=== PATIENT | male | born 2000 ===

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

== ENCOUNTER 2019-03-22 03:25 | Emergency (ER) | payer OTHER ==
[~2019-03-22 03:25] MED LIST changes: +INDO-23 PO
[2019-03-22] MEDS ORDERED: ALBUTEROL 2.5 MG/3 ML NEB ONE (03:26)
--- NOTE | 2019-03-22 03:32 | ER Report ---
History and Physical Time Seen By MD: 03:28 Hx. of Stated Complaint: ASTHMA EXACERBATION HPI/ROS CHIEF COMPLAINT: asthma exacerbation HISTORY OF PRESENT ILLNESS: This is a 18 year old male. Tonight with shortness of breath and wheezing. Has history of asthma, inhaler use at home, but not helping now. Some tightness, but no chest pain. REVIEW OF SYSTEMS: Cardiovascular: No chest pain, no palpitations. Gastrointestinal: No vomiting, no abdominal pain. Neuro: no headache, no weakness. Genitourinary: No problems with urination. Musculoskeletal: No musculoskeletal pain. Allergies: Coded Allergies: No Known Drug Allergies (Unverified , 03/22/19) Home Meds Active Scripts Prednisone (PREDNISONE) 20 Mg Tablet, 60 MG PO QDAY for 4 Days, #12 TAB 0 Refills Prov:ADAM PRINCE MD 03/22/19 Albuterol Sulfate 90 Mcg/Act (PROAIR HFA 90 MCG/ACT) 8.5 Gm Hfa.aer.ad, 2 PUFF IH Q4-6H PRN for asthma symptoms, #1 INHALER 2 Refills Prov:ILYA SWIFT DO 12/16/16 Discontinued Scripts Indomethacin (INDOMETHACIN) 50 Mg Capsule, 50 MG PO TID, #21 CAPSULE Prov:ARLENE MIMS 08/28/18 Hydrocodone Bit/Acetaminophen (HYDROCODON-ACETAMINOPHEN 5-325) 1 Each Tablet, 1 EACH PO Q4-6H PRN for PAIN, #12 TAB Prov:ARLENE MIMS 08/28/18 Reviewed Nurses Notes: Yes Hx Substance Use Disorder: No Hx Alcohol Use: No Constitutional Vital Sign - Last 24 Hours 03/22/19 03/22/19 03/22/19 03/22/19 03:25 03:26 03:27 03:27 Temp 97.7 Pulse 114 124 110 Resp 42 44 26 Pulse Ox 92 85 92 O2 Delivery Room Air Nasal Cannula O2 Flow Rate 2.0 03/22/19 03/22/19 03/22/19 03/22/19 03:30 03:30 03:35 03:35 Pulse 95 95 101 Resp 25 24 19 B/P (MAP) 134/87 (103) Pulse Ox 99 95 O2 Flow Rate 3.0 03/22/19 03/22/19 03/22/19 03/22/19 03:40 03:42 03:50 03:55 Pulse 86 93 83 75 Resp 12 24 11 21 Pulse Ox 100 92 92 03/22/19 03/22/19 03/22/19 03/22/19 04:00 04:05 04:20 04:30 Pulse 75 87 Resp 11 21 B/P (MAP) 128/92 (104) 129/78 (95) Pulse Ox 95 91 03/22/19 04:35 Pulse 81 Resp 16 Pulse Ox 91 Physical Exam General Appearance: Alert, having some distress due to shortness of breath, but no airway compromise. Eyes: Pupils equal and round, no injection. ENT: Normal oral mucosa. Moist mucous membranes. Normal posterior oropharynx. Neck: Neck is supple and non tender. Respiratory: Chest is non tender, Lungs with some tachypnea and wheezing on expiration. Cardiac: tachycardia with regular rhythm. Normal peripheral perfusion. Skin: No rashes or lesions. DIFFERENTIAL DIAGNOSIS: After history and physical exam differential diagnosis was considered for asthma exacerbation. Medical Decision Making EKG/Imaging Imaging CHEST SINGLE AP COMPARISONS: 2 view chest dated August 07, 2017 ADDITIONAL PERTINENT HISTORY: Acute shortness of breath with history of asthma FINDINGS: Cardiomediastinal silhouette: Negative. Pulmonary vasculature: Negative. Lung larios: Negative. Pleural spaces: Negative. Osseous structures: Negative. Surrounding soft tissues: Negative. IMPRESSION: No evidence of acute cardiopulmonary disease. Report Dictated By: Jose E Tao MD at 03/22/2019 4:34 AM ED Course/Re-evaluation Clinical Indication for ER IV: IV Access ED Course Initially on 2 liters oxygen nasal canula. Improvement after the first albuterol treatment, followed up with a DuoNeb treatment. Solu-Medrol 125mg IV given as well. Patient is much more comfortable. Has some mild expiratory wheezing now. Decision to Disposition Date: Mar 22, 2019 Decision to Disposition Time: 04:35 Depart Departure Latest Vital Signs Vital Signs Date Time Temp Pulse Resp B/P (MAP) Pulse Ox O2 Delivery O2 Flow Rate FiO2 03/22/19 04:35 81 16 91 03/22/19 04:30 129/78 (95) 03/22/19 03:30 3.0 03/22/19 03:27 Nasal Cannula 03/22/19 03:26 97.7 Impression: Primary Impression: Asthma exacerbation Condition: Improved Disposition: HOME OR SELF-CARE New Scripts Prednisone (PREDNISONE) 20 Mg Tablet 60 MG PO QDAY for 4 Days, #12 TAB 0 Refills Prov: ADAM PRINCE MD 03/22/19 Patient Instructions: Asthma (ED) Additional Instructions: Keep using your albuterol inhaler. Start Prednisone 20mg tablets, 3 tablets once a day for 4 more days. Problem Qualifiers Primary Impression: Asthma exacerbation Asthma severity: moderate Asthma persistence: persistent Qualified Codes: J45.41 - Moderate persistent asthma with (acute) exacerbation ADAM PRINCE MD Mar 22, 2019 03:32
[2019-03-22] MEDS ORDERED: methylPREDNIS SUCC 125 MG/2ML IVP ONE (03:40)
[2019-03-22] MEDS ORDERED: ALBUTEROL/IPRATROPIUM 3 ML NEB NEB ONE (03:40)
[2019-03-22 04:30] VITALS: BP 129/78
[2019-03-22] MEDS ORDERED: predniSONE 20 MG TAB PO ONE (04:40)
[2019-03-22] MEDS ORDERED: PRED20TA6 PO (04:40)
--- NOTE | 2019-03-22 04:43 | RADIOLOGY IMAGING REPORT ---
[place]AC[place] [facility] [place]IENT NAME: Randy Funk : 2000 MR: [id number] V: [id number] EXAM DATE: ORDERING PHYSICIAN: ADAM PRINCE TECHNOLOGIST: Location: [facility] - [place] Patient: Randy Funk : 2000 Visit/Account:[id number] Date of Sevice: 03/22/2019 CHEST SINGLE AP COMPARISONS: 2 view chest dated August 07, 2017 ADDITIONAL PERTINENT HISTORY: Acute shortness of breath with history of asthma FINDINGS: Cardiomediastinal silhouette: Negative. Pulmonary vasculature: Negative. Lung larios: Negative. Pleural spaces: Negative. Osseous structures: Negative. Surrounding soft tissues: Negative. IMPRESSION: No evidence of acute cardiopulmonary disease. Report Dictated By: Jose E Tao MD at 03/22/2019 4:34 AM Report E-Signed By: Jose E Tao MD at 03/22/2019 4:35 AM WSN:[id number]
[2019-03-22] MEDS ORDERED: ALBUTEROL 8 GM INHALER INH ONE (04:45)
== END 2019-03-22 05:07 | disposition home or self-care (01) ==
LOC: ER 03:38
DX: J45.41 Moderate persistent asthma with (acute) exacerbation (principal)
CPT/HCPCS: 71045; 94640; 96374; 99283; J2930; J7512; J7613; J7620

== ENCOUNTER 2019-03-28 09:56 | Observation (INO) | payer OTHER ==
[~2019-03-28] VITALS: Ht 182.9 cm; Wt 80.4 kg
[2019-03-28] VITALS (12 sets, daily range): BP systolic 122–145; BP diastolic 62–88
[~2019-03-28 09:56] MED LIST changes: +ALBUTEROL/IPRATROPIUM 3 ML NEB ONE; +PRED20TA6 PO
[2019-03-28] MEDS ORDERED: MAGNESIUM SUL* 2 GM/50 ML IVPB 50 ML ONE (10:00)
[2019-03-28] MEDS ORDERED: ALBUTEROL/IPRATROPIUM 3 ML NEB ONE ×2 (10:00→10:20)
[2019-03-28] MEDS ORDERED: methylPREDNIS SUCC 125 MG/2ML IVP ONE (10:00)
[2019-03-28] MEDS ORDERED: KETAMINE HCL-NS 50 MG/5 ML SYR IVP ONE (10:10)
[2019-03-28] MEDS ORDERED: ALBUTEROL/IPRATROPIUM 3 ML NEB NEB ONE ×4 (10:25)
--- NOTE | 2019-03-28 10:25 | ER Report ---
History and Physical Time Seen By MD: 10:00 HPI/ROS 18-year-old male with long-standing history of asthma. Does not smoke cigarettes. 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 He presents to the emergency department with severe shortness of breath. Unable to give history. Seen in the emergency department one week ago for a similar but less profound presentation. Was given nebs and steroids and discharged on steroids. Finished steroids yesterday. Woke up this morning with worsening shortness of breath did not respond to his home medications. Has been hospitalized in the past for asthma exacerbations, but never intubated. Denies fever. No cough. No Trauma. Remainder of the 14 system rev: Yes Allergies: Coded Allergies: No Known Drug Allergies (Unverified , 03/22/19) Home Meds Active Scripts Prednisone (PREDNISONE) 20 Mg Tablet, 60 MG PO QDAY for 4 Days, #12 TAB 0 Refills Prov:ADAM PRINCE MD 03/22/19 Albuterol Sulfate 90 Mcg/Act (PROAIR HFA 90 MCG/ACT) 8.5 Gm Hfa.aer.ad, 2 PUFF IH Q4-6H PRN for asthma symptoms, #1 INHALER 2 Refills Prov:ILYA SWIFT DO 12/16/16 Discontinued Scripts Indomethacin (INDOMETHACIN) 50 Mg Capsule, 50 MG PO TID, #21 CAPSULE Prov:ARLENE MIMS 08/28/18 Hydrocodone Bit/Acetaminophen (HYDROCODON-ACETAMINOPHEN 5-325) 1 Each Tablet, 1 EACH PO Q4-6H PRN for PAIN, #12 TAB Prov:ARLENE MIMS 08/28/18 Reviewed Nurses Notes: Yes Old Medical Records Reviewed: Yes Hx Smoking: No Smoking Status: Never Smoker Hx Substance Use Disorder: No Hx Alcohol Use: No Constitutional Vital Sign - Last 24 Hours 03/28/19 03/28/19 03/28/19 03/28/19 10:05 10:05 10:10 10:24 Temp 96.6 Pulse 135 121 114 Resp 36 30 20 B/P (MAP) 152/87 Pulse Ox 90 93 O2 Delivery Oxy Mask O2 Flow Rate 15.0 Physical Exam General Appearance: The patient is alert and in resp distress Eyes: Pupils equal and round no injection. Respiratory: Chest is non tender, scant air movement throughout with exp. wheezing. Cardiac: tachycardic rate and rhythm Gastrointestinal: Abdomen is soft and non tender, no masses, bowel sounds normal. Skin: No rashes or lesions. DIFFERENTIAL DIAGNOSIS: After history and physical exam differential diagnosis was considered for shortness of breath including but not limited to pulmonary infectious process, COPD, asthma, pulmonary embolus and congestive heart failure. Medical Decision Making Data Points Result Diagram: 03/28/19 0951 03/28/19 0951 Laboratory Hematology Test 03/28/19 09:51 White Blood Count 6.5 k/uL (4.5-11.0) Red Blood Count 6.75 M/uL (4.00-5.60) H Hemoglobin 18.3 g/dL (14.0-18.0) H Hematocrit 54.2 % (42.0-52.0) H Mean Corpuscular Volume 80.3 fL (80.0-96.0) Mean Corpuscular Hemoglobin 27.2 pg (26.0-33.0) Mean Corpuscular Hemoglobin Concent 33.8 g/dL (32.0-36.0) Red Cell Distribution Width 13.4 % (11.5-14.5) Platelet Count 305 K/uL (150-450) Mean Platelet Volume 8.1 fL (7.2-11.1) Neutrophils (%) (Auto) 36.7 % (39.4-72.5) L Lymphocytes (%) (Auto) 45.5 % (17.6-49.6) Monocytes (%) (Auto) 11.9 % (4.1-12.4) Eosinophils (%) (Auto) 5.3 % (0.4-6.7) Basophils (%) (Auto) 0.6 % (0.3-1.4) Nucleated RBC Relative Count (auto) 0.4 /100WBC Neutrophils # (Auto) 2.4 K/uL (2.0-7.4) Lymphocytes # (Auto) 3.0 K/uL (1.3-3.6) Monocytes # (Auto) 0.8 K/uL (0.3-1.0) Eosinophils # (Auto) 0.3 K/uL (0.0-0.5) Basophils # (Auto) 0.0 K/uL (0.0-0.1) Nucleated RBC Absolute Count (auto) 0.03 K/uL Chemistry Test 03/28/19 09:51 Sodium Level 140 mmol/L (137-145) Potassium Level 3.5 mmol/L (3.5-5.0) Chloride Level 102 mmol/L (98-107) Carbon Dioxide Level 29 mmol/L (22-30) Blood Urea Nitrogen 18 mg/dl (9-21) Creatinine 1.10 mg/dl (0.66-1.25) Glomerular Filtration Rate Calc > 60.0 Random Glucose 106 mg/dl (75-110) Calcium Level 9.0 mg/dl (8.4-10.2) Total Bilirubin 0.7 mg/dl (0.2-1.3) Aspartate Amino Transf (AST/SGOT) 115 U/L (0-35) Alanine Aminotransferase (ALT/SGPT) 170 U/L (0-56) Alkaline Phosphatase 109 U/L (0-126) Total Protein 7.7 g/dl (6.3-8.2) Albumin 4.4 g/dl (3.5-5.0) ED Course/Re-evaluation ED Course Status asthmaticus. Treated with continuous nebs, IV steroids, IV magnesium, and low dose ketamine. Patient now improved. No evidence of infection. unKnown trigger. We will admit to the ICU for observation. Decision to Disposition Date: Mar 28, 2019 Decision to Disposition Time: 11:10 Depart Departure Latest Vital Signs Vital Signs Date Time Temp Pulse Resp B/P (MAP) Pulse Ox O2 Delivery O2 Flow Rate FiO2 03/28/19 10:24 96.6 114 20 152/87 93 03/28/19 10:05 Oxy Mask 15.0 Impression: Primary Impression: Status asthmaticus Condition: Improved Disposition: Admitted from ER Problem Qualifiers Primary Impression: Status asthmaticus Asthma severity: severe Asthma persistence: persistent Qualified Codes: J45.52 - Severe persistent asthma with status asthmaticus AUDI GARNICA MD Mar 28, 2019 10:25
[2019-03-28 10:39] LABS: PLATELET COUNT, AUTOMATED 305 K/uL (150-450)
--- NOTE | 2019-03-28 11:22 | RADIOLOGY IMAGING REPORT ---
FACILITY: [facility] - [place] PATIENT NAME: Randy Funk : 2000 MR: [id number] V: [id number] EXAM DATE: ORDERING PHYSICIAN: AUDI GARNICA TECHNOLOGIST: Location: [facility] Patient: Randy Funk : 2000 Visit/Account:[id number] Date of Sevice: 03/28/2019 Study: Single portable view of the chest. Indication: Status asthmaticus Comparison study: March 22, 2019 Technique: Single AP view of the chest demonstrates no evidence of acute infiltrate. There is no evid ence of pleural effusion or pneumothorax. The mediastinal, cardiac, and diaphragmatic contours are un remarkable. There is a leadless pacemaker present. The position of the pacemaker is unchanged from the previous s tudy. IMPRESSION: Unremarkable chest. Report Dictated By: Timoteo Chisholm at 03/28/2019 11:06 AM Report E-Signed By: Timoteo Chisholm at 03/28/2019 11:14 AM WSN:[id number]
[2019-03-28] MEDS ORDERED: ACETAMINOPHEN 325 MG TAB PO PRN (15:00)
[2019-03-28] MEDS ORDERED: FLUSH 10 ML SYR IVP PRN (15:00)
--- NOTE | 2019-03-28 15:26 | History & Physical ---
History of Present Illness Chief Complaint Shortness of breath History of Present Illness 18-year-old male presented to the emergency department with complaints of severe shortness of breath. He reports a long-standing history of asthma. He tried his rescue inhaler and nebulizers prior to presenting to the emergency room. He denies cigarette smoking. 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. He reports he was seen in the emergency department one week ago for a similar but less profound presentation. He was given nebs and steroids and then discharged on oral steroids, which he finished yesterday. Has been hospitalized in the past for asthma exacerbations, but has never required intubation. He was recommended for admission for observation of respiratory status. He now reports much improvement in symptoms. Denies SOB. History Problems: (1) Asthma Status: Chronic Home Meds Active Scripts Prednisone (PREDNISONE) 20 Mg Tablet, 60 MG PO QDAY for 4 Days, #12 TAB 0 Refills Prov:ADAM PRINCE MD 03/22/19 Albuterol Sulfate 90 Mcg/Act (PROAIR HFA 90 MCG/ACT) 8.5 Gm Hfa.aer.ad, 2 PUFF IH Q4-6H PRN for asthma symptoms, #1 INHALER 2 Refills Prov:ILYA SWIFT DO 12/16/16 Discontinued Scripts Indomethacin (INDOMETHACIN) 50 Mg Capsule, 50 MG PO TID, #21 CAPSULE Prov:ARLENE MIMS 08/28/18 Hydrocodone Bit/Acetaminophen (HYDROCODON-ACETAMINOPHEN 5-325) 1 Each Tablet, 1 EACH PO Q4-6H PRN for PAIN, #12 TAB Prov:ARLENE MIMS 08/28/18 Allergies: Coded Allergies: No Known Drug Allergies (Unverified , 03/22/19) Hx Smoking: No Smoking Status: Never Smoker Hx Alcohol Use: No Review of Systems All Systems Reviewed/Normal: Yes, Except as Noted Exam Vital Signs Vital Signs Date Time Temp Pulse Resp B/P (MAP) Pulse Ox O2 Delivery O2 Flow Rate FiO2 03/28/19 14:31 98.8 63 11 142/77 (98) 97 Nasal Cannula 2.0 General Appearance: Alert, Awake, No Acute Distress, Afebrile Neuro: No Gross deficits Cardiovascular: Other (sinus arrythmia noted on monitor ausculation ) Respiratory: No Respiratory Distress, Other (diminished lung sounds throughout bilateral upper lung larios) GI: Abd Soft and Non-Tender Extremities: Warm, Perfused; No Edema Psych: Alert & Oriented X3, Appropriate Mood & Affect Medical Decision Making Data Points Result Diagram: [birth year] EKG / Imaging Imaging PATIENT NAME: Randy Funk : 2000 MR: [id number] V: [id number] EXAM DATE: ORDERING PHYSICIAN: AUDI GARNICA TECHNOLOGIST: [facility] Patient: Ranyd Funk : 2000 Visit/Account:[id number] Date of Sevice: 03/28/2019 Study: Single portable view of the chest. Indication: Status asthmaticus Comparison study: March 22, 2019 Technique: Single AP view of the chest demonstrates no evidence of acute infiltrate. There is no evidence of pleural effusion or pneumothorax. The mediastinal, cardiac, and diaphragmatic contours are unremarkable. There is a leadless pacemaker present. The position of the pacemaker is unchanged from the previous study. IMPRESSION: Unremarkable chest. Report Dictated By: Timoteo Chisholm at 03/28/2019 11:06 AM Report E-Signed By: Timoteo Chisholm at 03/28/2019 11:14 AM [id number] Assessment and Plan Problems: (1) Asthma exacerbation Status: Acute Assessment & Plan: He presented with severe shortness of breath, which did not respond to his albuterol inhaler or nebulizers. He was given continuous nebulizer, steroids, and magnesium with improvement in symptoms in the emergency department. He will be placed on IV steroids, scheduled and prn nebulizers. Will continue to monitor respiratory status closely in the ICU. 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
[2019-03-28] MEDS: ALBUTEROL 2.5 MG/3 ML NEB NEB SCH ×2 (16:45→18:35)
[2019-03-28] MEDS: methylPREDNIS SUCC 125 MG/2ML IVP SCH (17:01)
[2019-03-29] VITALS (11 sets, daily range): BP systolic 101–131; BP diastolic 44–74; Ht 182.9 cm; Wt 80.4 kg
[2019-03-29] MEDS: methylPREDNIS SUCC 125 MG/2ML IVP SCH ×4 (00:50→19:50)
[2019-03-29] MEDS: ALBUTEROL 2.5 MG/3 ML NEB NEB SCH ×3 (05:25→18:41)
[2019-03-29] MEDS: ALBUTEROL 2.5 MG/3 ML NEB NEB PRN ×2 (07:36→22:24)
--- NOTE | 2019-03-29 07:43 | Hospitalist Progress Note ---
Subjective Progress Notes Subjective He reports feeling improved this AM. Peak flow is approximately 1/2 of predicted. Physical Exam Vital Signs Date Time Temp Pulse Resp B/P (MAP) Pulse Ox O2 Delivery O2 Flow Rate FiO2 03/29/19 07:37 94 Room Air 03/29/19 07:37 58 20 03/29/19 06:00 129/65 (86) 03/29/19 05:00 98.8 03/29/19 03:03 2.0 Intake and Output0 03/29/19 07:04 Intake Total 860 ml Balance 860 ml Intake Oral 810 ml IV Total 50 ml # Voids 4 General Appearance: Alert, Awake Cardiovascular: Other (Fairly regular no murmur) Respiratory: Other (diminished breath sounds bilaterally with slightly prolonged expiratory phase) Chest: Other (implanted recorder left anterior/lower chest) GI: Soft and Non-Tender Extremities: Warm, Perfused Psych: Alert & Oriented X3 Result Diagram: 03/28/19 0951 03/28/19 0951 Assessment and Plan Problems: (1) Asthma exacerbation Status: Acute Assessment & Plan: He presented with severe shortness of breath, which did not respond to his albuterol inhaler or nebulizers. He was given continuous nebulizer, steroids, and magnesium with some improvement in the emergency department. He is currently on IV steroids, scheduled and PRN nebulized albutero l. He has had some symptomatic improvements, but peak flow is still quite low. Will continue with same and add Singulair and Zyrtec. He should be able to transfer out of the ICU. Monitor peak flows. Exam Sepsis Risk: No Definite Risk KENIA ESTEVEZ MD Mar 29, 2019 07:43
[2019-03-29] MEDS: CETIRIZINE HCL 10 MG TAB PO SCH (08:53)
[2019-03-29] MEDS: MONTELUKAST SODIUM 10 MG TAB PO SCH (08:53)
[2019-03-29] MEDS ORDERED: MELATONIN 3 MG TAB PO SCH (21:00)
[2019-03-30] MEDS: methylPREDNIS SUCC 125 MG/2ML IVP SCH ×2 (02:09→08:32)
[2019-03-30 02:11] VITALS: BP 115/53
[2019-03-30 05:00] LABS: PLATELET COUNT, AUTOMATED 286 K/uL (150-450)
[2019-03-30] MEDS: ALBUTEROL 2.5 MG/3 ML NEB NEB SCH ×2 (05:30→11:16)
[2019-03-30 08:26] VITALS: BP 130/63
[2019-03-30] MEDS: CETIRIZINE HCL 10 MG TAB PO SCH (08:32)
[2019-03-30] MEDS: MONTELUKAST SODIUM 10 MG TAB PO SCH (08:32)
[2019-03-30] MEDS ORDERED: PRED-1 PO (08:44)
[2019-03-30] MEDS ORDERED: ALBU8.5H IH (08:44)
--- NOTE | 2019-03-30 08:47 | Hospitalist Depart ---
Discharge Summary Reason for Hosp/Final Diag: (1) Asthma exacerbation Status: Acute Hospital Course & Plan: He presented with severe shortness of breath. He was given continuous nebulizer, steroids, and magnesium with some improvement in the emergency department. We continued to observe him for 48hrs on scheduled ster oids and nebulizers. He is now at his baseline and ambulating without difficulty. He will discharge on a prolonged taper of prednisone and a rescue inhaler. Departure Latest Vital Signs Vital Signs 03/30/19 03/30/19 02:22 08:26 Temp 98.0 Pulse 107 Resp 26 B/P (MAP) 130/63 (85) Pulse Ox 95 O2 Delivery Room Air O2 Flow Rate 2.0 Weight (Pounds): 177 Weight (Ounces): 5.0 Result Diagram: 03/30/1944603/30/19446 Condition: Improved Discharge: Home, Self Care Discharge Instructions Home Meds Active Scripts Prednisone 10 Mg Tab (PREDNISONE 10 MG TAB) 10 Mg Tablet, 10 MG PO DIRECTED, #30 TAB Take 4 tab daily x 3 days, then 3 tab daily x 3 days, then 2 tab daily x 3 days, then 1 tab daily x 3 days Prov:MYESHA SONI DO 03/30/19 Albuterol Sulfate 90 Mcg/Act (PROAIR HFA 90 MCG/ACT) 8.5 Gm Hfa.aer.ad, 2 PUFF IH Q6H PRN for WHEEZING, #1 INHALER Prov:MYESHA SONI DO 03/30/19 Discontinued Scripts Prednisone (PREDNISONE) 20 Mg Tablet, 60 MG PO QDAY for 4 Days, #12 TAB 0 Refills Prov:ADAM PRINCE MD 03/22/19 Albuterol Sulfate 90 Mcg/Act (PROAIR HFA 90 MCG/ACT) 8.5 Gm Hfa.aer.ad, 2 PUFF IH Q4-6H PRN for asthma symptoms, #1 INHALER 2 Refills Prov:ILYA SWIFT DO 12/16/16 Diet: Regular Activity: As Tolerated Venous Thromboembolism Antithrombotics Is Pt On Any Antithrombotics?: No MYESHA SONI DO Mar 30, 2019 08:47
== END 2019-03-30 13:55 | disposition home or self-care (01) ==
LOC: ER 10:00 → ICU 12:31 → INTOOBSV 12:31 → UNDOADMOB 12:31
PROVIDERS: ADMIT Family Medicine; ATTEND Family Medicine
DX: J45.52 Severe persistent asthma with status asthmaticus (principal)
CPT/HCPCS: 36415; 71045; 85025; 94640; 96365; 96375; 99284; G0378; J2930; J3475; J3490; J7613; J7620; 82040; 82247; 82310; 82374; 82435; 82565; 82947; 84075; 84132; 84155; 84295; 84450; 84460; 84520